=== PATIENT | male | born 1955 | race Caucasian/White ===

== ENCOUNTER 2021-11-10 09:08 | Day surgery (SDC) | payer MEDICARE, OTHER ==
[~2021-11-10] VITALS: Ht 182.9 cm; Wt 94.8 kg
[~2021-11-10 09:08] MED LIST: FAMO10 PO; Multivitamin1 EAC1; Multivitamin1 EAC1 PO; PHENY100ER PO
--- NOTE | 2021-11-10 09:56 | NUR ---
11/10/21 0956 Jacobo Jonas CALL LIGHT WITHIN REACH. TETRA DROPS AT 0850 PLEDGETT AT 0956
== END 2021-11-10 11:34 | disposition home or self-care (01) ==
LOC: ORSCSDS 09:08
PROVIDERS: Ophthalmology
PROC: 08RK3JZ Replacement of Left Lens with Synthetic Substitute, Percutaneous Approach (ICD-10-PCS; principal; 2021-11-10 10:30)
DX: H25.12 Age-related nuclear cataract, left eye (principal); K21.9 Gastro-esophageal reflux disease without esophagitis; G40.909 Epilepsy, unspecified, not intractable, without status epilepticus; Z79.899 Other long term (current) drug therapy
CPT/HCPCS: J2001; J2250; J3010; J3301; J7040; V2632

== ENCOUNTER 2023-11-22 11:14 | Day surgery (SDC) | payer MEDICARE, OTHER ==
[~2023-11-22] VITALS: Ht 182.9 cm; Wt 96.3 kg
--- NOTE | 2023-11-22 11:51 | NUR ---
11/22/23 1151 Andreea Aden IN AT 1143 LEROY IN AT 1144 CALL LIGHT AT BEDSIDE
[2023-11-22 12:48] VITALS: BP 132/101
--- NOTE | 2023-11-22 13:09 | NUR ---
11/22/23 1309 Marshal Olivares IV REMOVED INTACT. SITE WNL.
== END 2023-11-22 13:09 | disposition home or self-care (01) ==
LOC: ORSCSDS 11:14
PROVIDERS: Ophthalmology
PROC: 08RJ3JZ Replacement of Right Lens with Synthetic Substitute, Percutaneous Approach (ICD-10-PCS; principal; 2023-11-22 12:30)
DX: H25.11 Age-related nuclear cataract, right eye (principal); R56.9 Unspecified convulsions
CPT/HCPCS: J2250; J3010; J3301; J7040; V2632